=== PATIENT | male | born 1985 | race Caucasian/White ===

== ENCOUNTER 2018-06-30 15:14 | Emergency (ER) | payer SELFPAY ==
[~2018-06-30] VITALS: Ht 180.3 cm; Wt 104.8 kg
[2018-06-30] MEDS ORDERED: OFLO5DRO7 OT (16:39)
--- NOTE | 2018-06-30 16:40 | ED EENT ---
History of Present Illness General Chief Complaint: Foreign Body Stated Complaint: LEFT EAR,,, BUG IN EAR Nursing Triage Note: PT AMB TO ROOM #10 W/O DIFFICULTY. A&OX4. C/O BUG IN LT EAR. PT REPORTS APPROX 0100 THIS AM HE WAS WOKEN RELATED TO PAIN AND A CRAWLING SENSATION IN HER LT EAR. PT STATES "THERES A BUG IN MY EAR AND I DONT KNOW HOW IT GOT THERE." DENIES HEARING DISTURBANCES. Source: patient, spouse Exam Limitations: no limitations History of Present Illness Date Seen by Provider: Jun 30, 2018 Time Seen by Provider: 15:25 Initial Comments 32-year-old male patient presents to the emergency department complains of about to the left ear. Patient reports waking up at 0100 this a.m. feeling something crawling in his ear. Patient reports cutting vegetable oil and using Q-tips to try to get the bug out. Location Injury Occurred: home Timing/Duration: abrupt Location: ear (L) Prearrival Treatment: other (attempted using vegetable oil and Q-tips.) Modifying Factors: Worse With Other (denies improvement with vegetable oil or qtips.) Allergies and Home Medications Home Medications Ofloxacin 5 Ml Drops, 5 DROPS OT DAILY Prescribed by: ROES LEWIS on 06/30/18 1639 Patient Home Medication List Home Medication List Reviewed: Yes Review of Systems Review of Systems Constitutional: no symptoms reported Eyes: No Symptoms Reported Ears: See HPI; Denies Dizziness; Pain (left ear); Denies Tinnitus, Denies Bloody Discharge, Denies Clear Discharge, Denies Purulent Discharge, Denies Serosanguinous Discharge Nose: no symptoms reported Mouth: no symptoms reported Throat: no symptoms reported Respiratory: no symptoms reported Cardiovascular: no symptoms reported Skin: no symptoms reported Neurological: No Symptoms Reported All Other Systems Reviewed Negative Unless Noted: Yes (Negative excepted noted.) Past Qdyhiuo-Scjpmg-Yyjzar Hx Past Med/Social Hx: Reviewed Nursing Past Med/Soc Hx Patient Social History Alcohol Use: Rarely Uses Recreational Drug Use: No Smoking Status: Never a Smoker 2nd Hand Smoke Exposure: No Recent Foreign Travel: No Contact w/Someone Who Travel: No Recent Infectious Disease Expo: No Recent Hopitalizations: No Physical Abuse: No Sexual Abuse: No Seasonal Allergies Seasonal Allergies: No Past Medical History Surgeries: No Respiratory: No Cardiac: No Neurological: No Genitourinary: No Gastrointestinal: No Musculoskeletal: No Endocrine: No HEENT: No Cancer: No Psychosocial: No Integumentary: No Blood Disorders: No Family Medical History Reviewed Nursing Family Hx No Pertinent Family Hx Physical Exam Vital Signs Vital Signs - First Documented 06/30/18 15:19 Temp 97.5 Pulse 80 Resp 18 B/P (MAP) 133/88 (103) Pulse Ox 99 O2 Delivery Room Air Height, Weight, BMI Height: 5'11.00" Weight: 231lbs. oz. 104.844319rz; BMI Method:Stated General Appearance: WD/WN, no apparent distress Eyes: bilateral eye normal inspection, bilateral eye PERRL, bilateral eye EOMI Ears: right ear canal normal, right ear TM normal; left ear foreign body (a palma noted to the left external ear canal.); bilateral ear auricle normal Nose: normal inspection Mouth/Throat: normal mouth inspection, pharynx normal Cardiovascular: regular rate, rhythm, no murmur Respiratory: lungs clear, normal breath sounds, no respiratory distress, no accessory muscle use Neurologic/Psychiatric: alert, normal mood/affect, oriented x 3 Skin: normal color, warm/dry Procedures/Interventions I&D : Site: left ear Progress 0.5 cc 1% lidocaine instilled into the left external ear canal. an ear speculum was introduced into the external ear canal. The palma was noted to be lying against the tympanic membrane. A 10 [place] Cool suction was used to remove a small portion of the palma. attempt made to remove the rest of the palma with suction, irrigation, and a curette without success. patient tolerated the procedure well. blood loss zero. Progress/Results/Core Measures Results/Orders Vital Signs/I&O 06/30/18 15:19 Temp 97.5 Pulse 80 Resp 18 B/P (MAP) 133/88 (103) Pulse Ox 99 O2 Delivery Room Air Blood Pressure Mean: 103 Departure Communication (Admissions) 2214 Patient case discussed with Dr. Castanon. Dr. Castanon to see the patient as an outpatient Monday. Requests patient to call his office first thing Monday. Plan of care discussed with the patient. Patient verbalize understanding and agrees with the treatment plan. Impression Primary Impression: Foreign body in ear Qualified Codes: T16.2XXA - Foreign body in left ear, initial encounter Disposition: HOME, SELF-CARE Condition: Improved Departure-Patient Inst. Decision time for Depature: 16:37 Referrals: ROLANDO CASTANON MD Patient Instructions: Removal of Foreign Body in Ear, Child Add. Discharge Instructions: All discharge instructions reviewed with patient and/or family. Voiced understanding. Tylenol extra strength [id number] as directed for pain. Ibuprofen 800 mg by mouth every 8 hours as needed for pain. Follow-up with Dr. Castanon Monday for recheck, call first thing Monday for an appointment time. Return to the emergency department for worsened symptoms or any other concerns. Scripts Ofloxacin (Ofloxacin) 5 Ml Drops 5 DROPS OT DAILY, #1 EA 0 Refills Prov: ROSE LEWIS 06/30/18 Copy Copies To 1: ROLANDO CASTANON MD, GRETCHEN L PA Jun 30, 2018 16:40
[2018-06-30 17:03] VITALS: BP 133/88
== END 2018-06-30 17:03 | disposition home or self-care (01) ==
LOC: ER 15:16
DX: T16.2XXA Foreign body in left ear, initial encounter (principal)
CPT/HCPCS: 99282